=== PATIENT | female | born 1935 | race Caucasian/White ===

== ENCOUNTER 2017-08-02 11:32 | Inpatient (IN) ==
[2017-08-02 12:42] LABS: Basophils % 0.3 % (0.0-0.8); Eosinophils % 0.2 % (0.00-10.9); Hematocrit 40.3 VOL% (35.7-47.0); Hemoglobin 13.5 GM/DL (12.0-16.0); Immature Granulocytes % 0.3 %; Immature Granulocytes Absolute 0.03 #; Lymphocytes # 1.5 10*3/uL (1.4-4.0); Lymphocytes % 15.4 % (21.3-54.2); Mean Corpuscular HGB Conc 33.5 GM/DL (32-36); Mean Corpuscular Hemoglobin 31 PG (27-34); Mean Corpuscular Volume 93.1 FL (87-102); Mean Platelet Volume 10.3 FL (9.6-12.0); Monocytes # 0.4 10*3/uL (0.11-0.8); Monocytes % 4.2 % (1.7-12.7); Neutrophils # 7.7 10*3/uL (1.4-7.4); Neutrophils % 79.6 % (38.7-73.9); Platelet Count 207 T/CUMM (130-400); Red Blood Count 4.33 MC/CUMM (3.8-5.5); Red Cell Distribution Width 13.4 % (9.3-17.3); White Blood Count 9.7 T/CUMM (4-12)
[2017-08-02] MEDS ORDERED: ONDANSETRON 4 MG/2 ML VIAL ONE (12:56)
[2017-08-02] MEDS ORDERED: ONDANSETRON 4 MG/2 ML VIAL IV STA (12:57)
[2017-08-02 13:01] LABS: PT Patient Result 20.3 SECS
[2017-08-02 13:09] LABS: Albumin 3.6 G/DL (3.4-5.0); Bilirubin,Total 0.6 MG/DL (0.2-1.0); Calcium 8.9 MG/DL (8.5-10.1); Osmolality,Calculated 283.3 MOS/KG (273-304); Potassium 3.9 MMOL/L (3.5-5.1); Total Protein 7.7 G/DL (6.4-8.3)
[2017-08-02] MEDS ORDERED: ACETAMINOPHEN 325 MG TABLET PO PRN (14:27)
[2017-08-02] MEDS ORDERED: ONDANSETRON 4 MG/2 ML VIAL IV PRN (14:27)
[2017-08-02 14:56] LABS: Cholesterol 167 MG/DL (50-200); HDL Cholesterol 44 MG/DL (40-60); Triglycerides 171 MG/DL (2-150); Troponin I Only < 0.015 NG/ML (0.00-0.045); VLDL CHOLESTEROL 34.2 MG/DL
[2017-08-02] MEDS ORDERED: NITROGLYCERIN SL 0.4 MG TABLET SL PRN (15:44)
[2017-08-02] MEDS ORDERED: WARFARIN 4 MG TABLET PO ONE (17:17)
[2017-08-02] MEDS ORDERED: FUROSEMIDE 40 MG TABLET PO SCH (21:00)
[2017-08-02] MEDS ORDERED: LOVASTATIN 20 MG TABLET PO SCH (21:00)
[2017-08-03 04:55] LABS: Basophils % 0.4 % (0.0-0.8); Eosinophils # 0.1 10*3/uL (0.0-0.87); Eosinophils % 1.4 % (0.00-10.9); Hemoglobin 11.7 GM/DL (12.0-16.0); Immature Granulocytes % 0.7 %; Immature Granulocytes Absolute 0.05 #; Lymphocytes % 25.9 % (21.3-54.2); Mean Corpuscular HGB Conc 33.4 GM/DL (32-36); Mean Corpuscular Hemoglobin 32 PG (27-34); Mean Corpuscular Volume 94.6 FL (87-102); Mean Platelet Volume 10.6 FL (9.6-12.0); Monocytes # 0.7 10*3/uL (0.11-0.8); Monocytes % 9.2 % (1.7-12.7); Neutrophils # 4.7 10*3/uL (1.4-7.4); Neutrophils % 62.4 % (38.7-73.9); Platelet Count 180 T/CUMM (130-400); Red Cell Distribution Width 13.7 % (9.3-17.3); White Blood Count 7.6 T/CUMM (4-12)
[2017-08-03 05:03] LABS: PT Patient Result 20.1 SECS
[2017-08-03 05:25] LABS: Calcium 8.5 MG/DL (8.5-10.1); Osmolality,Calculated 284.3 MOS/KG (273-304); Potassium 3.6 MMOL/L (3.5-5.1)
[2017-08-03] MEDS ORDERED: LEVOTHYROXINE 25 MCG TABLET PO SCH (07:00)
[2017-08-03] MEDS ORDERED: MONTELUKAST 10 MG TABLET PO SCH (09:00)
[2017-08-03] MEDS ORDERED: ASPIRIN EC 81 MG TABLET PO SCH (09:00)
[2017-08-03] MEDS ORDERED: POTASSIUM CHLORIDE 20 MEQ TABLET PO SCH (09:00)
[2017-08-03] MEDS ORDERED: FUROSEMIDE 40 MG TABLET PO SCH (09:00)
[2017-08-03] MEDS ORDERED: CLOPIDOGREL 75 MG TABLET PO SCH (09:00)
[2017-08-03 12:33] VITALS: BP 120/69
[2017-08-03] MEDS ORDERED: CARVEDILOL 12.5 MG TABLET PO SCH (21:00)
[2017-08-04] MEDS ORDERED: WARFARIN 4 MG TABLET PO SCH (08:00)
[2017-08-05] MEDS ORDERED: WARFARIN 2 MG TABLET PO SCH (08:00)
== END 2017-08-03 15:25 | disposition home or self-care (01) | DRG 69 ==
LOC: N.ED 11:32 → N.EDINP 13:29 → N.4E 14:49
PROVIDERS: ADMIT Internal Medicine; ATTEND Internal Medicine

== ENCOUNTER 2021-06-23 11:16 | Inpatient (IN) ==
[2021-06-23 12:02] LABS: Basophils % 0.1 % (0.0-0.8); Eosinophils # 0.1 10*3/uL (0.0-0.87); Eosinophils % 0.7 % (0.00-10.9); Hematocrit 39.8 VOL% (35.7-47.0); Hemoglobin 12.6 GM/DL (12.0-16.0); Immature Granulocytes % 1.3 %; Lymphocytes % 12.7 % (21.3-54.2); Mean Corpuscular HGB Conc 31.7 GM/DL (32-36); Mean Corpuscular Volume 102.6 FL (87-102); Mean Platelet Volume 9.7 FL (9.6-12.0); Monocytes # 0.5 10*3/uL (0.11-0.8); Monocytes % 6.8 % (1.7-12.7); Neutrophils % 78.4 % (38.7-73.9); Platelet Count 183 T/CUMM (130-400); Red Blood Count 3.88 MC/CUMM (3.8-5.5); White Blood Count 7.6 T/CUMM (4-12)
[2021-06-23 12:26] LABS: Albumin 3.1 G/DL (3.4-5.0); Bilirubin,Total 0.6 MG/DL (0.20-1.00); Calcium 8.5 MG/DL (8.5-10.1); Total Protein 6.4 G/DL (6.4-8.2)
[2021-06-23 12:43] LABS: Potassium 4.3 MMOL/L (3.5-5.1)
[2021-06-23] MEDS ORDERED: ONDANSETRON 4 MG/2 ML VIAL IV STA (14:33)
[2021-06-23] MEDS ORDERED: fentaNYL 100 MCG/2 ML VIAL IV STA (14:33)
[2021-06-23 15:40] LABS: INR 1.5; PT Patient Result 16.6 SECS (10.5-12.0); Partial Thromboplastin Time 29.9 SECS (23.8-32.1)
[2021-06-23] MEDS ORDERED: GLUCAGON 1 MG VIAL IM PRN (17:09)
[2021-06-23] MEDS ORDERED: hydrALAZINE 20 MG/1 ML VIAL IV PRN (17:09)
[2021-06-23] MEDS ORDERED: ACETAMINOPHEN 325 MG TABLET PO PRN (17:09)
[2021-06-23] MEDS ORDERED: NITROGLYCERIN SL 0.4 MG TABLET SL PRN (17:17)
[2021-06-23] MEDS ORDERED: ENOXAPARIN 30 MG/0.3 ML SYRINGE SUBCUT SCH (17:30)
[2021-06-23] MEDS ORDERED: DEXTROSE 10% 250 ML BAG IV PRN (17:33)
[2021-06-23] MEDS: FUROSEMIDE 40 MG/4 ML VIAL IV SCH (18:11)
[2021-06-23 18:46] LABS: Urine Color Yellow (Yellow)
[2021-06-23 18:47] LABS: Bilirubin,Urine Negative (Negative); Blood, Urine Negative (Negative); Glucose,Urine (UA) Negative (Negative); Ketones,Urine Negative (Negative); Nitrite,Urine Negative (Negative); Protein,Urine Negative (Negative); Urine Appearance Clear (Clear); Urine Urobilinogen 0.2 eU/dL (<2.0)
[2021-06-23 18:50] LABS: RBC,Urine 1 /HPF (0-4); Squamous Epithelial Cell,Urine Occasional /HPF (0-10)
[2021-06-23] MEDS: SIMVASTATIN 20 MG TABLET PO SCH (21:35)
[2021-06-23] MEDS: MONTELUKAST 10 MG TABLET PO SCH (21:35)
[2021-06-23] MEDS: GABAPENTIN 100 MG CAPSULE PO SCH (21:35)
[2021-06-24 04:55] LABS: Basophils % 0.3 % (0.0-0.8); Eosinophils % 0.4 % (0.00-10.9); Hematocrit 37.1 VOL% (35.7-47.0); Hemoglobin 11.9 GM/DL (12.0-16.0); Immature Granulocytes Absolute 0.07 #; Lymphocytes # 1.6 10*3/uL (1.4-4.0); Lymphocytes % 21.7 % (21.3-54.2); Mean Corpuscular HGB Conc 32.1 GM/DL (32-36); Mean Corpuscular Volume 100.8 FL (87-102); Mean Platelet Volume 10.2 FL (9.6-12.0); Monocytes # 0.6 10*3/uL (0.11-0.8); Monocytes % 7.8 % (1.7-12.7); Neutrophils % 68.8 % (38.7-73.9); Platelet Count 168 T/CUMM (130-400); Red Blood Count 3.68 MC/CUMM (3.8-5.5); Red Cell Distribution Width 13.8 % (9.3-17.3); White Blood Count 7.3 T/CUMM (4-12)
[2021-06-24 05:03] LABS: INR 1.2; PT Patient Result 13.6 SECS (10.5-12.0)
[2021-06-24 05:20] LABS: Albumin 2.7 G/DL (3.4-5.0); Bilirubin,Total 0.4 MG/DL (0.20-1.00); Calcium 8.4 MG/DL (8.5-10.1); Osmolality,Calculated 286.1 MOS/KG (273-304); Risk Ratio 3.7; Thyroid Stimulating Hormone 0.99 uIU/ml (0.358-3.74); Total Protein 6.1 G/DL (6.4-8.2); VLDL Cholesterol 31.8 MG/DL
[2021-06-24] MEDS: GABAPENTIN 100 MG CAPSULE PO SCH ×2 (09:36→20:47)
[2021-06-24] MEDS: SENNA 8.6 MG TABLET PO SCH (09:36)
[2021-06-24] MEDS: predniSONE 5 MG TABLET PO SCH (09:36)
[2021-06-24] MEDS: FUROSEMIDE 40 MG/4 ML VIAL IV SCH (09:36)
[2021-06-24] MEDS: PANTOPRAZOLE 40 MG TABLET PO SCH (09:36)
[2021-06-24] MEDS: POTASSIUM CHLORIDE 20 MEQ TABLET PO SCH (09:36)
[2021-06-24] MEDS: LEVOTHYROXINE 50 MCG TABLET PO SCH (09:36)
[2021-06-24] MEDS ORDERED: MORPHINE 2 MG/1 ML SYRINGE IV SCH (14:30)
[2021-06-24] MEDS: ONDANSETRON 4 MG/2 ML VIAL IV PRN (15:00)
[2021-06-24] MEDS: MORPHINE 2 MG/1 ML SYRINGE IV PRN (15:01)
[2021-06-24] MEDS: HEPARIN DRIP 25,000 UNITS/500 ML PREMIX IV SCH (15:02)
[2021-06-24] MEDS: MONTELUKAST 10 MG TABLET PO SCH (20:47)
[2021-06-24] MEDS: carvediloL 6.25 MG TABLET PO SCH (20:47)
[2021-06-24] MEDS: SIMVASTATIN 20 MG TABLET PO SCH (20:48)
[2021-06-24] MEDS ORDERED: MAGNESIUM HYDROXIDE SUSP 30 ML UDCUP PO ONE (21:24)
[2021-06-25] MEDS: LACTULOSE 20 GM/30 ML UDCUP PO PRN ×2 (05:33→22:05)
[2021-06-25 06:01] LABS: INR 1.2
[2021-06-25 06:10] LABS: Partial Thromboplastin Time > 211.8 SECS (23.8-32.1)
[2021-06-25] MEDS ORDERED: WARFARIN 1 MG TABLET PO SCH (06:30)
[2021-06-25] MEDS: PANTOPRAZOLE 40 MG TABLET PO SCH (08:51)
[2021-06-25] MEDS: FUROSEMIDE 40 MG TABLET PO SCH (08:52)
[2021-06-25] MEDS: GABAPENTIN 100 MG CAPSULE PO SCH ×2 (08:52→22:04)
[2021-06-25] MEDS: LEVOTHYROXINE 50 MCG TABLET PO SCH (08:52)
[2021-06-25] MEDS: SENNA 8.6 MG TABLET PO SCH (08:52)
[2021-06-25] MEDS: POTASSIUM CHLORIDE 20 MEQ TABLET PO SCH (08:52)
[2021-06-25] MEDS: carvediloL 6.25 MG TABLET PO SCH ×2 (08:52→22:04)
[2021-06-25] MEDS: predniSONE 5 MG TABLET PO SCH (08:52)
[2021-06-25] MEDS ORDERED: CLOPIDOGREL 75 MG TABLET PO SCH (09:00)
[2021-06-25] MEDS: MORPHINE 2 MG/1 ML SYRINGE IV PRN (11:36)
[2021-06-25] MEDS: HEPARIN DRIP 25,000 UNITS/500 ML PREMIX IV SCH (16:01)
[2021-06-25] MEDS: MONTELUKAST 10 MG TABLET PO SCH (22:04)
[2021-06-25] MEDS: SIMVASTATIN 20 MG TABLET PO SCH (22:04)
[2021-06-26 05:05] LABS: Basophils % 0.3 % (0.0-0.8); Eosinophils # 0.1 10*3/uL (0.0-0.87); Eosinophils % 0.9 % (0.00-10.9); Hematocrit 38.1 VOL% (35.7-47.0); Hemoglobin 11.9 GM/DL (12.0-16.0); Immature Granulocytes % 1.3 %; Immature Granulocytes Absolute 0.14 #; Lymphocytes # 1.4 10*3/uL (1.4-4.0); Lymphocytes % 12.2 % (21.3-54.2); Mean Corpuscular HGB Conc 31.2 GM/DL (32-36); Mean Corpuscular Volume 103.5 FL (87-102); Mean Platelet Volume 10.4 FL (9.6-12.0); Monocytes # 0.6 10*3/uL (0.11-0.8); Monocytes % 5.3 % (1.7-12.7); Platelet Count 170 T/CUMM (130-400); Red Blood Count 3.68 MC/CUMM (3.8-5.5); Red Cell Distribution Width 13.7 % (9.3-17.3)
[2021-06-26 05:18] LABS: Calcium 8.8 MG/DL (8.5-10.1); Osmolality,Calculated 281.3 MOS/KG (273-304); Potassium 4.5 MMOL/L (3.5-5.1)
[2021-06-26 05:40] LABS: INR 1.1; PT Patient Result 12.2 SECS (10.5-12.0)
[2021-06-26] MEDS ORDERED: WARFARIN 2 MG TABLET PO SCH (06:30)
[2021-06-26] MEDS: LEVOTHYROXINE 50 MCG TABLET PO SCH (09:52)
[2021-06-26] MEDS: SENNA 8.6 MG TABLET PO SCH (09:52)
[2021-06-26] MEDS: POTASSIUM CHLORIDE 20 MEQ TABLET PO SCH (09:52)
[2021-06-26] MEDS: FUROSEMIDE 40 MG TABLET PO SCH (09:52)
[2021-06-26] MEDS: carvediloL 6.25 MG TABLET PO SCH ×2 (09:52→22:13)
[2021-06-26] MEDS: predniSONE 5 MG TABLET PO SCH (09:52)
[2021-06-26] MEDS: GABAPENTIN 100 MG CAPSULE PO SCH ×2 (09:52→22:13)
[2021-06-26] MEDS: PANTOPRAZOLE 40 MG TABLET PO SCH (09:52)
[2021-06-26] MEDS: MORPHINE 2 MG/1 ML SYRINGE IV PRN (09:54)
[2021-06-26] MEDS: HEPARIN DRIP 25,000 UNITS/500 ML PREMIX IV SCH (18:02)
[2021-06-26] MEDS: MONTELUKAST 10 MG TABLET PO SCH (22:12)
[2021-06-26] MEDS: SIMVASTATIN 20 MG TABLET PO SCH (22:12)
[2021-06-27 04:59] LABS: Basophils % 0.4 % (0.0-0.8); Eosinophils # 0.1 10*3/uL (0.0-0.87); Eosinophils % 0.7 % (0.00-10.9); Hematocrit 35.2 VOL% (35.7-47.0); Hemoglobin 11.3 GM/DL (12.0-16.0); Immature Granulocytes % 2.3 %; Immature Granulocytes Absolute 0.19 #; Lymphocytes # 1.4 10*3/uL (1.4-4.0); Lymphocytes % 17.5 % (21.3-54.2); Mean Corpuscular HGB Conc 32.1 GM/DL (32-36); Mean Corpuscular Volume 102.6 FL (87-102); Mean Platelet Volume 9.9 FL (9.6-12.0); Monocytes # 0.6 10*3/uL (0.11-0.8); Monocytes % 7.3 % (1.7-12.7); Neutrophils % 71.8 % (38.7-73.9); Platelet Count 164 T/CUMM (130-400); Red Blood Count 3.43 MC/CUMM (3.8-5.5); Red Cell Distribution Width 13.9 % (9.3-17.3); White Blood Count 8.2 T/CUMM (4-12)
[2021-06-27 05:25] LABS: Calcium 8.2 MG/DL (8.5-10.1); Osmolality,Calculated 285.1 MOS/KG (273-304); Potassium 4.6 MMOL/L (3.5-5.1)
[2021-06-27] MEDS: SENNA 8.6 MG TABLET PO SCH (10:03)
[2021-06-27] MEDS: FUROSEMIDE 40 MG TABLET PO SCH (10:03)
[2021-06-27] MEDS: LEVOTHYROXINE 50 MCG TABLET PO SCH (10:03)
[2021-06-27] MEDS: predniSONE 5 MG TABLET PO SCH (10:03)
[2021-06-27] MEDS: carvediloL 6.25 MG TABLET PO SCH ×2 (10:04→20:51)
[2021-06-27] MEDS: POTASSIUM CHLORIDE 20 MEQ TABLET PO SCH (10:04)
[2021-06-27] MEDS: GABAPENTIN 100 MG CAPSULE PO SCH ×2 (10:04→20:50)
[2021-06-27] MEDS: PANTOPRAZOLE 40 MG TABLET PO SCH (10:04)
[2021-06-27] MEDS: MORPHINE 2 MG/1 ML SYRINGE IV PRN (10:59)
[2021-06-27] MEDS: SIMVASTATIN 20 MG TABLET PO SCH (20:50)
[2021-06-27] MEDS: MONTELUKAST 10 MG TABLET PO SCH (20:50)
[2021-06-28] MEDS: HEPARIN DRIP 25,000 UNITS/500 ML PREMIX IV SCH (00:08)
[2021-06-28 05:30] LABS: PT Patient Result 10.9 SECS (10.5-12.0)
[2021-06-28 05:31] LABS: Basophils # 0.1 10*3/uL (0.0-0.2); Eosinophils # 0.1 10*3/uL (0.0-0.87); Eosinophils % 1.1 % (0.00-10.9); Hematocrit 35.8 VOL% (35.7-47.0); Hemoglobin 11.2 GM/DL (12.0-16.0); Immature Granulocytes % 4.8 %; Immature Granulocytes Absolute 0.39 #; Lymphocytes # 1.4 10*3/uL (1.4-4.0); Lymphocytes % 16.8 % (21.3-54.2); Mean Corpuscular HGB Conc 31.3 GM/DL (32-36); Mean Corpuscular Volume 103.8 FL (87-102); Mean Platelet Volume 10.3 FL (9.6-12.0); Monocytes # 0.6 10*3/uL (0.11-0.8); Monocytes % 6.8 % (1.7-12.7); Neutrophils % 69.5 % (38.7-73.9); Platelet Count 185 T/CUMM (130-400); Red Blood Count 3.45 MC/CUMM (3.8-5.5); Red Cell Distribution Width 13.7 % (9.3-17.3); White Blood Count 8.2 T/CUMM (4-12)
[2021-06-28 05:43] LABS: Calcium 8.8 MG/DL (8.5-10.1); Osmolality,Calculated 286.3 MOS/KG (273-304); Potassium 5.4 MMOL/L (3.5-5.1)
[2021-06-28] MEDS: POTASSIUM CHLORIDE 20 MEQ TABLET PO SCH (09:39)
[2021-06-28] MEDS: carvediloL 6.25 MG TABLET PO SCH ×2 (09:40→20:50)
[2021-06-28] MEDS: FUROSEMIDE 40 MG TABLET PO SCH (10:33)
[2021-06-28] MEDS: PANTOPRAZOLE 40 MG TABLET PO SCH (10:34)
[2021-06-28] MEDS: LEVOTHYROXINE 50 MCG TABLET PO SCH (10:34)
[2021-06-28] MEDS: SENNA 8.6 MG TABLET PO SCH (10:34)
[2021-06-28] MEDS: predniSONE 5 MG TABLET PO SCH (10:34)
[2021-06-28] MEDS: GABAPENTIN 100 MG CAPSULE PO SCH ×2 (10:34→20:50)
[2021-06-28] MEDS ORDERED: ALBUTEROL/IPRATROPIUM 3 ML NEB RESP TX ONE (10:44)
[2021-06-28] MEDS: LACTATED RINGERS 1,000 ML IV SCH (10:50)
[2021-06-28] MEDS ORDERED: LIDOCAINE 2% 5 ML VIAL ONE (12:18)
[2021-06-28] MEDS ORDERED: ETOMIDATE 20 MG/10 ML VIAL IV ONE (12:18)
[2021-06-28] MEDS ORDERED: propofoL 200 MG/20 ML VIAL IV ONE (12:18)
[2021-06-28] MEDS: MORPHINE 2 MG/1 ML SYRINGE IV PRN (15:29)
[2021-06-28] MEDS: ONDANSETRON 4 MG/2 ML VIAL IV PRN (15:29)
[2021-06-28] MEDS: SIMVASTATIN 20 MG TABLET PO SCH (20:50)
[2021-06-28] MEDS: MONTELUKAST 10 MG TABLET PO SCH (20:50)
[2021-06-29 05:18] LABS: Basophils # 0.1 10*3/uL (0.0-0.2); Basophils % 0.9 % (0.0-0.8); Eosinophils # 0.1 10*3/uL (0.0-0.87); Eosinophils % 1.3 % (0.00-10.9); Hematocrit 34.8 VOL% (35.7-47.0); Hemoglobin 10.8 GM/DL (12.0-16.0); Immature Granulocytes % 5.6 %; Immature Granulocytes Absolute 0.43 #; Lymphocytes # 1.7 10*3/uL (1.4-4.0); Lymphocytes % 22.2 % (21.3-54.2); Mean Corpuscular Volume 103.3 FL (87-102); Mean Platelet Volume 9.6 FL (9.6-12.0); Monocytes # 0.7 10*3/uL (0.11-0.8); Monocytes % 8.4 % (1.7-12.7); Neutrophils % 61.6 % (38.7-73.9); Platelet Count 185 T/CUMM (130-400); Red Blood Count 3.37 MC/CUMM (3.8-5.5); Red Cell Distribution Width 14.1 % (9.3-17.3); White Blood Count 7.7 T/CUMM (4-12)
[2021-06-29 05:42] LABS: Calcium 8.5 MG/DL (8.5-10.1); Osmolality,Calculated 285.3 MOS/KG (273-304); Potassium 4.9 MMOL/L (3.5-5.1)
[2021-06-29 05:43] LABS: Eosinophils 2 % (0-10); Hypochromia Slight; Lymphocytes 23 % (20-55); Microcytosis Slight; Platelet Estimate Adequate; Total Cells Counted 100
[2021-06-29] MEDS: LACTATED RINGERS 1,000 ML IV SCH (07:35)
[2021-06-29] MEDS: carvediloL 6.25 MG TABLET PO SCH ×2 (09:15→22:22)
[2021-06-29] MEDS: predniSONE 5 MG TABLET PO SCH (09:16)
[2021-06-29] MEDS: LEVOTHYROXINE 50 MCG TABLET PO SCH (09:16)
[2021-06-29] MEDS: POTASSIUM CHLORIDE 20 MEQ TABLET PO SCH (09:16)
[2021-06-29] MEDS: PANTOPRAZOLE 40 MG TABLET PO SCH (09:16)
[2021-06-29] MEDS: GABAPENTIN 100 MG CAPSULE PO SCH ×2 (09:16→21:22)
[2021-06-29] MEDS: SENNA 8.6 MG TABLET PO SCH (09:17)
[2021-06-29] MEDS ORDERED: LIDOCAINE 1% 50 ML VIAL ONE (10:17)
[2021-06-29] MEDS ORDERED: TISSUE ADHESIVE 1 EACH APPLICATOR TOP ONE (10:17)
[2021-06-29] MEDS ORDERED: DEXAMETHASONE 10 MG/1 ML VIAL ONE (10:18)
[2021-06-29] MEDS ORDERED: LIDOCAINE 2% 5 ML VIAL ONE (10:22)
[2021-06-29] MEDS ORDERED: propofoL 200 MG/20 ML VIAL IV ONE (10:22)
[2021-06-29] MEDS ORDERED: fentaNYL 100 MCG/2 ML VIAL ONE (10:22)
[2021-06-29] MEDS ORDERED: LACTATED RINGERS 1,000 ML IV SCH (11:00)
[2021-06-29] MEDS ORDERED: ETOMIDATE 40 MG/20 ML VIAL IV ONE (12:29)
[2021-06-29] MEDS: FUROSEMIDE 40 MG TABLET PO SCH (13:46)
[2021-06-29] MEDS: MONTELUKAST 10 MG TABLET PO SCH (21:22)
[2021-06-29] MEDS: SIMVASTATIN 20 MG TABLET PO SCH (21:22)
[2021-06-30 08:13] VITALS: BP 149/53
[2021-06-30] MEDS: FUROSEMIDE 40 MG TABLET PO SCH (09:17)
[2021-06-30] MEDS: LEVOTHYROXINE 50 MCG TABLET PO SCH (09:17)
[2021-06-30] MEDS: POTASSIUM CHLORIDE 20 MEQ TABLET PO SCH (09:17)
[2021-06-30] MEDS: SENNA 8.6 MG TABLET PO SCH (09:17)
[2021-06-30] MEDS: predniSONE 5 MG TABLET PO SCH (09:17)
[2021-06-30] MEDS: GABAPENTIN 100 MG CAPSULE PO SCH (09:18)
[2021-06-30] MEDS: carvediloL 6.25 MG TABLET PO SCH (09:18)
[2021-06-30] MEDS: PANTOPRAZOLE 40 MG TABLET PO SCH (09:18)
[2021-06-30 09:50] LABS: PT Patient Result 10.9 SECS (10.5-12.0)
== END 2021-06-30 11:23 | disposition hospice, home (50) | DRG 516 ==
LOC: N.ED 11:16 → INTOOBSV 17:09 → N.EDINP 17:09 → SUATTDRO 17:09 → N.TELEN 18:08
PROVIDERS: ADMIT Emergency Medicine; ATTEND Internal Medicine